=== PATIENT | male | born 1985 | race African-American/Black ===

== ENCOUNTER 2020-01-27 17:23 | Emergency (ER) | payer SELFPAY ==
[2020-01-27] MEDS ORDERED: NORMAL SALINE 1000 ML 1,000 ML IV ONE (17:33)
--- NOTE | 2020-01-27 17:45 | ER Document Report ---
ED Heat Exposure - General Chief Complaint: Heat Exposure Stated Complaint: HEAT EXPOSURE Time Seen by Provider: 01/27/20 17:26 Mode of Arrival: Medic Information source: Patient Notes: 34-year-old male patient presenting to the emergency department with concern for possible heat exposure. He reports he was outside with his family playing paintball when he began to get lightheaded and dizzy. He states that he then got nauseous and vomited twice. He denied any chest pain or shortness of breath. His family called 911, on EMS arrival he was diaphoretic and had a blood pressure in the 90s systolic. Patient denies any complaints. Past Medical History - General Information source: Patient - Social History Smoking Status: Never Smoker Frequency of alcohol use: None Drug Abuse: None Family History: Reviewed & Not Pertinent - Medical History Medical History: Negative Surgical Hx: Negative Review of Systems - Review of Systems Constitutional: Diaphoresis EENT: No symptoms reported Cardiovascular: No symptoms reported. denies: Chest pain Respiratory: denies: Cough, Hurts to breathe Gastrointestinal: No symptoms reported, Nausea, Vomiting - x2 Genitourinary: No symptoms reported Male Genitourinary: No symptoms reported Musculoskeletal: No symptoms reported Skin: No symptoms reported Hematologic/Lymphatic: No symptoms reported Neurological/Psychological: No symptoms reported Physical Exam - Vital signs Vitals: Resp 15 01/27/20 17:26 - Notes Notes: PHYSICAL EXAMINATION: GENERAL: Well-appearing, well-nourished and in no acute distress. HEAD: Atraumatic, normocephalic. EYES: Pupils equal round and reactive to light, extraocular movements intact, sclera anicteric, conjunctiva are normal. ENT: Nares patent, oropharynx clear without exudates. Moist mucous membranes. NECK: Normal range of motion, supple without lymphadenopathy LUNGS: Breath sounds clear to auscultation bilaterally and equal. No wheezes rales or rhonchi. HEART: Regular rate and rhythm without murmurs ABDOMEN: Soft, nontender, nondistended abdomen. No guarding, no rebound. No masses appreciated. Musculoskeletal: Normal range of motion, no pitting or edema. No cyanosis. NEUROLOGICAL: Cranial nerves grossly intact. Normal speech, normal gait. Normal sensory, motor exams PSYCH: Normal mood, normal affect. SKIN: Warm, Dry, normal turgor, no rashes or lesions noted. Course - Re-evaluation Re-evalutation: Patient appears well, nontoxic, vital signs are within normal limits on arrival. Patient reports he feels much improved after EMS gave him 900 cc of lactated Ringer's. Patient's work-up today was reassuring. His lab work was normal, his EKG was reviewed and showed no acute changes. He denied any chest pain or shortness of breath. He continues to state he feels well. His current vitals continue to be within normal limits. He will be discharged home at this time. Encouraged him to continue hydrating. - Vital Signs Vital signs: Temp Pulse Resp BP Pulse Ox 98.1 F 71 16 119/75 100 01/27/20 17:27 01/27/20 19:48 01/27/20 19:48 01/27/20 19:48 01/27/20 19:48 - Laboratory Result Diagrams: 01/27/20 17:49 01/27/20 17:49 Laboratory results interpreted by me: 01/27/20 01/27/20 01/27/20 17:40 17:49 17:49 WBC 3.7 L Glucose 125 H POC Glucose 143 H Urine Protein Urine Urobilinogen 01/27/20 18:40 WBC Glucose POC Glucose Urine Protein 30 H Urine Urobilinogen 4.0 H - EKG Interpretation by Co EKG shows normal: Sinus rhythm - Sinus rhythm, rate 75, QTC 394, normal intervals, no ST segment elevations or depressions to suggest ischemia. Discharge - Discharge Clinical Impression: Near syncope Heat exhaustion Qualifiers: Encounter type: initial encounter Qualified Code(s): T67.5XXA - Heat exhaustion, unspecified, initial encounter Condition: Stable Disposition: HOME, SELF-CARE Additional Instructions: Your work-up today was reassuring, your lab work, urine and EKG were all normal. Please continue to hydrate yourself, drink plenty of fluids. Tylenol or ibuprofen for any body cramping. Follow-up with primary care, if you do not have a primary care provider you may follow[facility] with [facility], call them to schedule an appointment. Return to the emergency department with any new or worsening symptoms.
[2020-01-27 18:16] LABS: ABSOLUTE LYMPHOCYTES (AUTO) 1.1 10^3/uL (0.5-4.7); ABSOLUTE MONOCYTES (AUTO) 0.3 10^3/uL (0.1-1.4); ABSOLUTE NEUT (AUTO) 2.3 10^3/uL (1.7-8.2); BASOPHILS % (AUTO) 0.6 % (0-2); HEMATOCRIT 41.8 % (37.9-51.0); HEMOGLOBIN 14.4 g/dL (13.5-17.0); LYMPHOCYTES % (AUTO) 29.9 % (13-45); MEAN CORPUSCULAR HEMOGLOBIN 32.2 pg (27.0-33.4); MEAN CORPUSCULAR HGB CONC 34.4 g/dL (32.0-36.0); MEAN CORPUSCULAR VOLUME 93 fl (80-97); PLATELET COUNT 224 10^3/uL (150-450); RED BLOOD COUNT 4.48 10^6/uL (4.35-5.55); RED CELL DISTRIBUTION WIDTH 13.6 % (11.5-14.0); SEGMENTED NEUTROPHILS % (AUTO) 61.5 % (42-78); TOTAL CELLS COUNTED % (AUTO) 100 %; WHITE BLOOD COUNT 3.7 10^3/uL (4.0-10.5)
[2020-01-27 18:26] LABS: ALBUMIN 3.9 g/dL (3.5-5.0); ALKALINE PHOSPHATASE 38 U/L (38-126); ANION GAP 10 (5-19); ASPARTATE AMINO TRANSFERASE 26 U/L (17-59); BILIRUBIN,DIRECT 0.2 mg/dL (0.0-0.4); BILIRUBIN,TOTAL 0.4 mg/dL (0.2-1.3); BLOOD UREA NITROGEN 15 mg/dL (7-20); CALCIUM 9.4 mg/dL (8.4-10.2); CARBON DIOXIDE 24 mmol/L (22-30); CHLORIDE 105 mmol/L (98-107); CREATINE KINASE 164 U/L (55-170); GLUCOSE 125 mg/dL (75-110); POTASSIUM 4.1 mmol/L (3.6-5.0); TOTAL PROTEIN 6.7 g/dL (6.3-8.2)
[2020-01-27 19:00] LABS: APPEARANCE,URINE CLEAR; BILIRUBIN,URINE NEGATIVE (NEGATIVE); COLOR,URINE YELLOW; GLUCOSE, URINE NEGATIVE (NEGATIVE); KETONES,URINE NEGATIVE (NEGATIVE); LEUKOCYTE ESTERASE,URINE NEGATIVE (NEGATIVE); NITRITE,URINE NEGATIVE (NEGATIVE); PROTEIN,URINE 30 mg/dL (NEGATIVE); URINE SPECIFIC GRAVITY 1.025
[2020-01-27 19:27] VITALS: BP 119/75
--- NOTE | 2020-01-28 02:30 | EKG REPORT ---
SEVERITY:- ABNORMAL ECG - SINUS RHYTHM LEFT VENTRICULAR HYPERTROPHY ST ELEV, PROBABLE NORMAL EARLY REPOL PATTERN : Confirmed by: Pérez Rain MD 28-Jan-2020 02:29:25
== END 2020-01-27 19:53 | disposition home or self-care (01) ==
LOC: ER 17:23
DX: T67.5XXA Heat exhaustion, unspecified, initial encounter (principal); R42 Dizziness and giddiness; R11.2 Nausea with vomiting, unspecified; X30.XXXA Exposure to excessive natural heat, initial encounter; Y93.69 Activity, other involving other sports and athletics played as a team or group
CPT/HCPCS: 93005; 99284; 96360; 36415; 82962; 82550; 85025; 80053; 81001; 84484; 93010; J7030